=== PATIENT | female | born 1945 | race Caucasian/White ===

== ENCOUNTER → 2018-01-24 | Day surgery (SDC) | payer MEDICARE, BC | LOC: MSO 09:32 | DX: Z12.11 Encounter for screening for malignant neoplasm of colon (principal); K57.30 Diverticulosis of large intestine without perforation or abscess without bleeding; Z86.711 Personal history of pulmonary embolism; Z79.01 Long term (current) use of anticoagulants; I10 Essential (primary) hypertension; K21.9 Gastro-esophageal reflux disease without esophagitis; E11.9 Type 2 diabetes mellitus without complications | CPT/HCPCS: G0121; 00812; J2704; J7030 ==